=== PATIENT | female | born 1950 | race Caucasian/White ===

== ENCOUNTER 2017-09-16 10:34 | Outpatient (CLI) | payer OTHER ==
--- NOTE | 2017-09-16 13:23 | Ultrasound Report ---
PELVIC ULTRASOUND: 09/16/2017 CLINICAL INDICATION: Postmenopausal vaginal discharge. TECHNIQUE: Transabdominal pelvic ultrasound performed for global evaluation. FINDINGS: The uterus is retroverted, measuring 5.6 x 3.8 x 3.1 cm. The endometrial echo complex measures 4 mm. Small anterior intramural leiomyomas are noted, measuring up to 1.3 cm. The right ovary measures 2.5 x 1.5 x 1.0 cm, and demonstrates a 1 cm simple cyst. The left ovary measures 1.9 x 1.4 x 1.0 cm, and is unremarkable. No free fluid is present. IMPRESSION: NO EVIDENCE OF ENDOMETRIAL HYPERPLASIA. LEIOMYOMAS IN THE UTERUS. SMALL SIMPLE RIGHT OVARIAN CYST. TD: 09/16/2017 13:22
== END 2017-09-16 10:35 | disposition home or self-care (01) ==
LOC: DI 10:34
PROVIDERS: ATTEND Family Medicine
DX: D25.1 Intramural leiomyoma of uterus (principal); N83.291 Other ovarian cyst, right side
CPT/HCPCS: 76830; 76856

== ENCOUNTER 2019-03-02 08:00 | Outpatient (CLI) | payer OTHER ==
[2019-03-02 20:44] LABS: CANDIDA GROUP DNA NEGATIVE (NEGATIVE); CANDIDA KRUSEI DNA NEGATIVE (NEGATIVE); TRICHOMONAS VAGINALIS DNA NEGATIVE (NEGATIVE)
== END 2019-03-02 23:59 | disposition home or self-care (01) ==
LOC: LAB.R 08:00
PROVIDERS: ATTEND Family Medicine
DX: N89.8 Other specified noninflammatory disorders of vagina (principal)
CPT/HCPCS: 87661; 87801

== ENCOUNTER 2019-03-19 14:28 | Outpatient (CLI) | payer OTHER ==
--- NOTE | 2019-03-19 15:38 | Mammography Report ---
Reason: SCREENING MAMMO Procedure Date: 03/19/2019 Accession Number: [id number] / [id number] Procedure: MGN - Screening Mammo Dig Bilat CPT Code: FULL RESULT: EXAM: Screening Mammo Dig Bilat DATE: 03/19/2019 2:52 PM CLINICAL HISTORY: Routine screening TECHNIQUE: (B) - Bilateral CC and MLO views were obtained. COMPARISON: 07/01/2015, 03/04/2012, 03/02/2011, and 04/25/2009 PARENCHYMAL PATTERN: (VD) - The breasts demonstrate extremely dense parenchyma bilaterally, limiting the sensitivity of mammography. FINDINGS: No significant interval change. There are no suspicious masses, calcifications, or areas of distortion. IMPRESSION: Negative examination. BI-RADS category 1. RECOMMENDATION: (ANNUAL) - Recommend routine annual screening mammography. BI-RADS CATEGORY: (1) - Negative. STANDARD QUALIFYING STATEMENTS: 1. This examination was not reviewed with the aid of Computer-Aided Detection (CAD). 2. A negative or benign imaging report should not preclude biopsy if clinically suspicious findings are present. 3. Dense breasts may obscure an underlying neoplasm. 4. This examination was reviewed without the aid of 3D breast imaging (tomosynthesis).
== END 2019-03-19 14:29 | disposition home or self-care (01) ==
LOC: DI.N 14:28
DX: Z12.31 Encounter for screening mammogram for malignant neoplasm of breast (principal)
CPT/HCPCS: 77067

== ENCOUNTER 2019-04-13 08:00 | Outpatient (CLI) | payer OTHER ==
[2019-04-14 21:02] LABS: CANDIDA GROUP DNA NEGATIVE (NEGATIVE); CANDIDA KRUSEI DNA NEGATIVE (NEGATIVE); TRICHOMONAS VAGINALIS DNA NEGATIVE (NEGATIVE)
== END 2019-04-13 23:59 | disposition home or self-care (01) ==
LOC: LAB.R 08:00
PROVIDERS: ATTEND Obstetrics & Gynecology
DX: N89.8 Other specified noninflammatory disorders of vagina (principal)
CPT/HCPCS: 87661; 87801

== ENCOUNTER 2019-05-18 09:09 | Day surgery (SDC) | payer OTHER ==
[2019-05-18] MEDS ORDERED: LACTATED RINGERS 1,000 ML IV ONE (09:15)
[2019-05-18] MEDS ORDERED: fentaNYL 250 MCG/5 ML VIAL IVP ONE (09:40)
[2019-05-18] MEDS ORDERED: MIDAZOLAM 2 MG/2 ML VIAL IVP ONE (09:40)
[2019-05-18 11:18] VITALS: BP 121/80
== END 2019-05-18 09:10 | disposition home or self-care (01) ==
LOC: SDS 09:09
PROVIDERS: ATTEND Internal Medicine Gastroenterology
PROC: 0DBN8ZZ Excision of Sigmoid Colon, Via Natural or Artificial Opening Endoscopic (ICD-10-PCS; principal; 2019-05-18 10:30)
DX: Z12.11 Encounter for screening for malignant neoplasm of colon (principal); D12.5 Benign neoplasm of sigmoid colon; K57.30 Diverticulosis of large intestine without perforation or abscess without bleeding
CPT/HCPCS: 45380; J3010; J7120

== ENCOUNTER 2020-01-12 10:25 | Outpatient (CLI) | payer OTHER ==
[2020-01-12 11:07] LABS: ALBUMIN 4.5 g/dL (3.2-5.5); ALBUMIN/GLOBULIN RATIO 1.8 (1.0-2.2); ALKALINE PHOSPHATASE 44 IU/L (42-121); ALT ALANINE AMINOTRANSFERASE 59 IU/L (10-60); AST ASPARTATE AMINOTRANSFERASE 49 IU/L (10-42); BILIRUBIN,TOTAL 0.7 mg/dL (0.2-1.0); BUN - BLOOD UREA NITROGEN 14 mg/dL (6-20); CALCIUM 9.5 mg/dL (8.5-10.3); CARBON DIOXIDE - CO2 26 mmol/L (21-32); CHLORIDE 101 mmol/L (101-111); CHOL/HDL RATIO 2.9 (<4.4); CHOLESTEROL 273 mg/dL; CREATININE 0.7 mg/dL (0.4-1.0); GLUCOSE 108 mg/dL (70-100); HDL CHOLESTEROL 95 mg/dL; LDL CHOLESTEROL,CALCULATED 150 mg/dL; LDL/HDL RATIO 1.6 (<4.4); SODIUM 138 mmol/L (135-145); VLDL CHOLESTEROL 28 mg/dL
[2020-01-12 12:14] LABS: FREE T4 (FREE THYROXINE) 0.58 ng/dL (0.58-1.64)
== END 2020-01-12 10:26 | disposition home or self-care (01) ==
LOC: LAB 10:25
PROVIDERS: ATTEND Family Medicine
DX: Z11.59 Encounter for screening for other viral diseases (principal); U07.1 COVID-19; E78.5 Hyperlipidemia, unspecified; E03.9 Hypothyroidism, unspecified
CPT/HCPCS: 36415; 80053; 80061; 81599; 83721; 84439; 84443

== ENCOUNTER 2020-04-19 13:18 | Outpatient (CLI) | payer OTHER ==
--- NOTE | 2020-04-19 14:18 | SLEEP CARE CONSULTATION ---
Information from patient questionnaire entered by Krystin Celis. I have reviewed and concur with the information entered by Krystin Celis. This document represents the service I personally performed and the decisions made by me, Kellie Pierce ARNP. History of Present Illness Service Date and Time: 04/19/2020 1318 Reason for Visit: New patient Chief Complaint: reports: Insomnia, Unrefreshed sleep, Snoring, Excessive daytime sleepiness, Observed pauses in breathing, Fatigue, Frequent awakenings at night. denies: Other Date of Onset: years Usual bedtime: 1212-1487 Time it takes to fall asleep: varies Snores at night: Yes Observed to quit breathing while asleep: Yes Sleeps alone due to snoring: Yes ( in own room with CPAP) Number of times waking at night: 5-6 Reasons for waking at night: reports: Choking, Snoring, Gasping for air, Bathroom. denies: Other Toss, Turn, or Twitch while sleeping: Yes Recalls having dreams: Yes Usually gets out of bed at: depends; 0600 or 0700 when working Feels refreshed in the morning: Yes (sometimes) Morning headache: No Sleepy or fatigued during the day: Yes Ever fallen asleep while driving: No Takes day naps: Yes (1-2 a week, 1-2 hours on average) Dreams during day naps: No Prior sleep studies: No Additional HPI information: I had the pleasure of seeing PHILIP COLLINS today regarding the possibility of her having a sleep disorder. Her current complaints are snoring, unrefreshed sleep, excessive daytime sleepiness, frequent night awakening, insomnia and fatigue. tells her she snores and stops breathing. She wakes up choking. She does not always wake up feeling rested. Her has encouraged her to have a sleep study since he has sleep apnea and uses a CPAP with good results. - Parasomnia Symptoms Ever been unable to move upon waking from sleep: Yes Walks in sleep: No Talks in sleep: No Ever acted out dreams in sleep: No Ever felt weak in the knees when startled or emotional: Yes Bothered by creepy, crawly, restless sensations in legs: No Problems with memory or concentration: No Subjective Initial [place] Sleepiness Scale score: 4 (in 2019) Past Medical History Past Medical History: reports: Hypothyroidism. 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 Patient is and lives in [place]. Have you smoked in the past 12 months: No Years of smokin (5-10 years) Quit date: 1999 Alcohol use: Yes Alcohol amount and frequency: wine at night Caffeine use: Yes Caffeine amount and frequency: 2 cups coffee/A.M. Family History Family history of sleep disordered breathing: No Allergies and Home Medications Drug allergies reviewed: Yes (Sulfa) Home medication list reviewed: Yes Allergy and home medication list: levothyroxine venlafaxine acyclovir vit D3 Zolpidem as needed Review of Systems Cardiovascular: denies: high blood pressure, palpitations, chest pain, irregular heart rate or pulse, leg or foot swelling Respiratory: denies: shortness of breath Gastrointestinal: denies: heartburn, difficulty swallowing Neurological: denies: headaches, seizure, head trauma, speech dysfunction, gait or balance problems Psychiatric: denies: Attention Deficit Hyperactivity, anxiety, depression, mood disorder Ear/Nose/Throat: reports: injury to nose, tonsillectomy, wisdom teeth removed. denies: nasal congestion, sinus problems, nose bleeds, dry mouth/throat Endocrine: reports: thyroid disease Musculoskeletal: reports: joint pain, back pain. denies: muscle pain or cramping Immunologic: denies: allergies to food or environment Physical Exam Blood Pressure: 135/83 Cuff size: wrist Heart Rate: 63 O2 Saturation: 98 Height: 5 ft 5 in Weight: 147 lb Body Mass Index: 24.4 BMI Classification: Healthy weight Neck circumference: 14 (inches) HEENT: No craniofacial malformation Nostrils: patent to airflow Turbinates: swollen (left side) Septum: midline Mouth and throat: narrow oropharynx Soft palate: normal Hard palate: normal Uvula: normal Uvula visualization: 25% Mallampati Class III Tongue: enlarged in size with teeth tran on lateral edges Tonsils: absent bilaterally Chin and jaw: normal size and position Neck: normal w/o lymphadenopathy or thyromegaly Heart: regular rate and rhythm Lungs: clear bilaterally Impression and Plan 1. Suspected Obstructive Sleep Apnea-Hypopnea Syndrome, as suggested by a history of loud and irregular snoring, observed cessation of breath while asleep, gasping or choking in sleep, frequent awakening during the night, unrefreshed sleep, and excessive daytime sleepiness. I reviewed with patient that a narrow oropharynx and obesity are common predisposing factors for obstructive sleep apnea-hypopnea syndrome. I recommend proceeding to polysomnography to confirm the diagnosis and to assess severity. If the patient has significant sleep disordered breathing, a manual CPAP titration study will also be performed to find the optimal treatment pressure. I informed the patient of what the sleep studies involve and after some discussion, obtained agreement to proceed. The pathophysiology of obstructive sleep apnea-hypopnea syndrome was discussed with the patient and health risks of cardiovascular and cerebrovascular disease if not treated. AAS brochure for obstructive sleep apnea-hypopnea syndrome given and reviewed. Risks of drowsy driving discussed in detail and patient advised to avoid long distance driving and to sinker puller at the first sign of drowsiness. Patient agreed to plan. * Schedule polysomnography +- manual CPAP titration study. * Avoid long distance driving or driving when feeling sleepy. * Avoid alcohol, sedative and muscle relaxant around bedtime. * Attempt to lose weight. * Review instructions provided by trained office staff on how to prepare for the sleep study. * Return for follow-up after sleep study completed. Visit Type: In Office Time Spent with Patient (minutes): 36 Provider Statement: I spent 100% of the Face to Face Visit with the patient with greater than 50% spent counseling the patient and coordination of care.
[2020-04-19 14:19] VITALS: BP 135/83
== END 2020-04-19 13:19 | disposition home or self-care (01) ==
LOC: SC 13:18
PROVIDERS: ATTEND Nurse Practitioner Family
DX: G47.10 Hypersomnia, unspecified (principal); R06.81 Apnea, not elsewhere classified; G47.8 Other sleep disorders; R06.83 Snoring
CPT/HCPCS: 99203; 99212

== ENCOUNTER 2020-05-24 13:57 | Outpatient (CLI) | payer OTHER | END 2020-05-24 13:58 | disposition home or self-care (01) | LOC: SC 13:57 | PROVIDERS: ATTEND Nurse Practitioner Family | DX: G47.33 Obstructive sleep apnea (adult) (pediatric) (principal); R09.02 Hypoxemia | CPT/HCPCS: 95806 ==

== ENCOUNTER 2020-06-23 14:23 | Outpatient (CLI) | payer OTHER ==
--- NOTE | 2020-06-23 15:07 | SLEEP CARE CONSULTATION ---
Information from patient questionnaire entered by Kaci Fulton. I have reviewed and concur with the information entered by Kaci Fulton. This document represents the service I personally performed and the decisions made by , Kellie Pierce ARNP. History of Present Illness Service Date and Time: 06/23/20201422 Initial [place] Sleepiness Scale score: 4 (in 2020) Current [place] Sleepiness Scale score: 5 Additional HPI information: PHILIP COLLINS returns for follow up and results of the recently performed home sleep study. I explained the pathophysiology behind obstructive sleep apnea. We then spent quite a bit of time discussing different treatment options. For mild obstructive sleep apnea, surgery and oral appliance are alternatives to nasal CPAP therapy but in moderate or severe cases, nasal CPAP is the most effective and reliable treatment. Because apnea is primarily in supine position, then positional management therapy could be effective. Methods discussed such as positioning with pillows, using a T-shirt with tennis balls in the back, and shown commercial products that have a pillow format on back to prevent supine sleep. I reviewed the impact of weight changes on sleep apnea and strongly recommended losing weight. I explained how CPAP machine works with sample devices RespirINNFOCUS Dreamstation and [employer] [id number] and what to expect when using the machine. Using CPAP every night in order to get used to it was emphasized. Patient advised to put CPAP mask on before getting into bed so as not to fall asleep without CPAP. To assist acclimation to CPAP use, it could also be used for a short time during day while reading or watching TV. The patient was instructed to call the CPAP supplier to discuss any mechanical problem that may occur. If the mask given is uncomfortable or is difficult to keep on through the night even with adjustment, contact the CPAP supplier as many will replace with another mask style if notified before 30 days. If snoring or perceives is not getting enough air or too much air from the machine, notify this office. AASM patient education PAP tips reviewed and given to patient. Patient counseled not drink alcohol less than 4 hours before bedtime as it can increase snoring and apnea. Patient was cautioned about risks of drowsy driving until sleepiness symptoms resolve. Sleep Study - Results Type of Sleep Study: Home sleep study Prior sleep studies: No Polysomnography/Home Sleep Study results: Physician Impression: The quality of the study is good. The length of the study is adequate (> 240 minutes). Please also see the tabulated and graphic data. 1. Obstructive Sleep Apnea-Hypopnea (ICD-10 G47.33), moderate, with an AHI of 25.4/hr and trini SaO2 of 77%. During the study, the patient had 74 apneas (74 obstructive, 0 central, 0 mixed) and 45 hypopneas. The longest episode lasted 59.5 seconds. The respiratory events occurred more frequently during supine sleep (supine AHI was 60.9 and non-supine, 5.65). 2. Hypoxemia (ICD-10 R09.02), moderate, with the lowest oxygen saturation of 77 % and 39.6 minutes with SaO2 under 90%. Baseline oxygen saturation was normal (Average oxygen saturation was 92%). Allergies and Home Medications Drug allergies reviewed: Yes (sulfa) Home medication list reviewed: Yes (no changes) Review of Systems Review of systems same as previous: Yes (no changes) Physical Exam Heart Rate: 72 O2 Saturation: 98 Height: 5 ft 5 in Weight: 154 lb Body Mass Index: 25.6 BMI Classification: Overweight Impression and Plan 1. Obstructive Sleep Apnea-Hypopnea Syndrome, moderate, with lowest oxygen saturation of 77%. Obviously this is the cause of the patients symptoms of unrefreshed sleep, and excessive daytime sleepiness. Positive pressure therapy could benefit her overall health and reduce risks of cardiovascular and cerebrovascular events. I discussed therapy options and recommended she try the CPAP therapy. Patient would like to think about decision and talk to her before making a decision. She will call the office with her decision. She was given a list of DME suppliers to review. Because the apnea is more severe supine, I instructed to avoid sleeping supine using pillow positioning until able to start CPAP use. * Patient will let us know her decision on starting CPAP therapy * Avoid supine sleep until using CPAP. * The patient is again cautioned about driving until sleepiness completely resolves. * Return as needed or one month after CPAP obtained. I will assess response to therapy and compliance at that time. Visit Type: In Office Time Spent with Patient (minutes): 24 Provider Statement: I spent 100% of the Face to Face Visit with the patient with greater than 50% spent counseling the patient and coordination of care.
== END 2020-06-23 14:24 | disposition home or self-care (01) ==
LOC: SC 14:23
PROVIDERS: ATTEND Nurse Practitioner Family
DX: G47.33 Obstructive sleep apnea (adult) (pediatric) (principal); E66.3 Overweight; Z68.25 Body mass index [BMI] 25.0-25.9, adult
CPT/HCPCS: 99212; 99213

== ENCOUNTER 2020-08-09 13:53 | Outpatient (CLI) | payer OTHER ==
--- NOTE | 2020-08-09 14:32 | SLEEP CARE CONSULTATION ---
Information from patient questionnaire entered by Neftaly Stanley. I have reviewed and concur with the information entered by Neftaly Stanley. This document represents the service I personally performed and the decisions made by , Kellie Pierce ARNP. History of Present Illness Service Date and Time: 08/09/2020 1353 Previous diagnosis: Moderate, Obstructive Sleep Apnea-Hypopnea Syndrome AHI: 25.4 Reason for follow up: first compliance (07/06/20?) Equipment type: CPAP Equipment obtained from: [employer] (got initial supplies) Mask style: Nasal Mask brand: Resmed (Airfit) Backup mask available: No (has other masks, different sizes) Last cushion change: 1 month Prior sleep studies: No Year and Where: 2019 [facility] Type of Sleep Study: Home sleep study HPI additional information: PHILIP COLLINS was diagnosed to have moderate, AHI 25.4, obstructive sleep apnea- hypopnea syndrome and returned today for CPAP therapy first compliance follow- up. CPAP Compliance Data - Data Reviewed with Patient Average duration of nightly device use: 6 h 5 min Compliance rate %: 43 Current pressure setting (cmH2O): 4-15 (6.5 median, 9.3 average, 10.7 maximum) Average residual AHI: 2.6 Subjective Missed days of use due to: reports: other (power outage for 3 days) Patient concerns: reports: air blowing in eyes, mask leak noise, dry mouth, nose, throat (minor, not drinking water at night as used to; not using humidifier). denies: aerophagia, mask discomfort (becoming more comfortable), condensation in mask/hose, nasal congestion, epistaxis, other Observed to snore while using device: No Current pressure setting perceived as: comfortable On therapy, patient: reports: sleeping better, awakening more refreshed, being more awake and alert during the day, more rested overall. denies: drowsiness while driving Initial [place] Sleepiness Scale score: 4 (in 2019) Current [place] Sleepiness Scale score: 9 Allergies and Home Medications Drug allergies reviewed: Yes (Sulfa) Home medication list reviewed: Yes (no changes) Review of Systems Review of systems same as previous: Yes (no changes) Physical Exam Heart Rate: 68 O2 Saturation: 98 Height: 5 ft 5 in Weight: 152 lb Body Mass Index: 25.2 BMI Classification: Overweight Impression and Plan 1. Obstructive Sleep Apnea-Hypopnea Syndrome, moderate, with poor treatment compliance and good apnea control. On CPAP therapy, the patient has better sleep quality and is more rested overall. She is using a median pressure of 6.5 cmH2O, an average pressure of 9.3 cmH2O and a maximum pressure of 10.7 cm H2O. I will adjust her pressure to 6-10 cmH2O to reflect the pressure used since she is having good apnea control with these settings. She states that she is still getting used to the mask but feels this should improve in time. Philip has had some movement of her mask causing air leaks when sleeping on her side. I advised her to obtain a CPAP pillow to reduce this and this will reduce mask leaks and air getting in her eyes. She is not using her humidity chamber and has been having mild mouth dryness. I advised her that oral dryness can be reduced by adjusting humidity setting higher or heated hose lower or by adjusting both settings. Patient advised also that chronic oral dryness can affect dental health. She voiced understanding and agreement with plan of care. Patient's apnea severity and rationale for treatment to reduce apnea, improve sleep quality and reduce cardiovascular and cerebrovascular events was reviewed. * Change auto CPAP pressure to 6-10 cmH2O * Notify me if snoring with mask or feeling that the pressure is too much or too little * Attempt to lose weight * Call this office if any problems using CPAP * Return for follow up in 1-2 months, or sooner if concerns arise Counseling Topics: Spare mask, Weight loss health impact Visit Type: In Office Time Spent with Patient (minutes): 25 Provider Statement: I spent 100% of the Face to Face Visit with the patient with greater than 50% spent counseling the patient and coordination of care.
== END 2020-08-09 13:54 | disposition home or self-care (01) ==
LOC: SC 13:53
PROVIDERS: ATTEND Nurse Practitioner Family
DX: G47.33 Obstructive sleep apnea (adult) (pediatric) (principal); E66.3 Overweight; Z68.25 Body mass index [BMI] 25.0-25.9, adult
CPT/HCPCS: 99212; 99213

== ENCOUNTER 2020-09-13 13:50 | Outpatient (CLI) | payer OTHER ==
--- NOTE | 2020-09-13 14:19 | SLEEP CARE CONSULTATION ---
Information from patient questionnaire entered by Neftaly Stanley. I have reviewed and concur with the information entered by Neftaly Stanley. This document represents the service I personally performed and the decisions made by , Kellie Pierce ARNP. History of Present Illness Service Date and Time: 09/13/2020 1350 Previous diagnosis: Moderate, Obstructive Sleep Apnea-Hypopnea Syndrome AHI: 25.4 Reason for follow up: one month (followup - compliance/pressure change) Equipment type: CPAP Equipment obtained from: [employer] (got initial supplies) Mask style: Nasal (over the nose) Backup mask available: No (other masks, different sizes) Last cushion change: over 2 months Prior sleep studies: No and Where: 2019 [facility] Type of Sleep Study: Home sleep study HPI additional information: PHILIP COLLINS was diagnosed to have moderate, AHI 25.4, obstructive sleep apnea- hypopnea syndrome and returned today for CPAP therapy 1 month compliance and pressure change follow-up. CPAP Compliance Data - Data Reviewed with Patient Average duration of nightly device use: 8 h 13 min Compliance rate %: 97 Current pressure setting (cmH2O): 6-10 Average residual AHI: 1.9 Central apnea: 0.2 Obstructive apnea: 1.4 Subjective Patient concerns: reports: air blowing in eyes, mask leak noise, condensation in mask/hose. denies: aerophagia, mask discomfort, nasal congestion, dry mouth, nose, throat, epistaxis, other Observed to snore while using device: No Current pressure setting perceived as: comfortable On therapy, patient: reports: sleeping better, awakening more refreshed, being more awake and alert during the day, more rested overall. denies: drowsiness while driving Initial [place] Sleepiness Scale score: 4 (in 2019) Current [place] Sleepiness Scale score: 3 Allergies and Home Medications Drug allergies reviewed: Yes (Sulfa) Home medication list reviewed: Yes (no changes) Review of Systems Review of systems same as previous: Yes (no changes) Physical Exam Heart Rate: 59 O2 Saturation: 98 Height: 5 ft 5 in Weight: 152 lb Body Mass Index: 25.2 BMI Classification: Overweight Impression and Plan 1. Obstructive Sleep Apnea-Hypopnea Syndrome, moderate, with good treatment compliance and good apnea control. On CPAP therapy, the patient has better sleep quality and is more rested overall. She has had more frequent mask leaks which still improve with adjusting her mask. She still needs to contact DME to get more supplies since she is still using mask from her original supplies. Mask leaks can be reduced by washing mask daily and changing mask cushions more frequently to improve mask seal and comfort. Patient voiced understanding. Patient's apnea severity and rationale for treatment to reduce apnea, improve sleep quality and reduce cardiovascular and cerebrovascular events was reviewed. * Continue auto CPAP pressure at 6-10 cmH2O * Notify me if snoring with mask or feeling that the pressure is too much or too little * Attempt to lose weight * Call this office if any problems using CPAP * Return for follow up in 3 months, or sooner if concerns arise Counseling Topics: Spare mask, Weight loss health impact Visit Type: In Office Time Spent with Patient (minutes): 22 Provider Statement: I spent 100% of the Face to Face Visit with the patient with greater than 50% spent counseling the patient and coordination of care.
== END 2020-09-13 13:51 | disposition home or self-care (01) ==
LOC: SC 13:50
PROVIDERS: ATTEND Nurse Practitioner Family
DX: G47.33 Obstructive sleep apnea (adult) (pediatric) (principal); E66.3 Overweight; Z68.25 Body mass index [BMI] 25.0-25.9, adult
CPT/HCPCS: 99212; 99213

== ENCOUNTER 2020-12-13 13:55 | Outpatient (CLI) | payer OTHER ==
--- NOTE | 2020-12-13 14:20 | SLEEP CARE CONSULTATION ---
Information from patient questionnaire entered by Kaci Fulton. I have reviewed and concur with the information entered by Kaci Fulton. This document represents the service I personally performed and the decisions made by , Kellie Pierce ARNP. History of Present Illness Service Date and Time: 12/13/2020 1355 Previous diagnosis: Moderate, Obstructive Sleep Apnea-Hypopnea Syndrome AHI: 25.4 (in 2019) Reason for follow up: three month Equipment type: CPAP Equipment obtained from: [employer] (getting supplies as needed) Mask style: Nasal (over the nose) Backup mask available: No (will keep old mask when replaced) Last cushion change: 1 month Prior sleep studies: Yes Year and Where: 2019 - [facility] Type of Sleep Study: Home sleep study HPI additional information: PHILIP COLLINS was diagnosed to have moderate, AHI 25.4, obstructive sleep apnea- hypopnea syndrome and returned today with partner for CPAP therapy three month follow-up. CPAP Compliance Data - Data Reviewed with Patient Average duration of nightly device use: 7 hr 18 min Compliance rate %: 92 (90 days) Current pressure setting (cmH2O): 6-10 Humidity settin Average residual AHI: 2.1 Subjective Patient concerns: denies: aerophagia, mask discomfort, air blowing in eyes, mask leak noise, condensation in mask/hose, nasal congestion, dry mouth, nose, throat, epistaxis, other Observed to snore while using device: No Current pressure setting perceived as: comfortable On therapy, patient: reports: sleeping better, awakening more refreshed, being more awake and alert during the day, more rested overall. denies: drowsiness while driving Initial [place] Sleepiness Scale score: 4 (in 2019) Current [place] Sleepiness Scale score: 6 Allergies and Home Medications Home medication list reviewed: Yes (no new meds) Review of Systems Review of systems same as previous: Yes (no changes) Physical Exam Heart Rate: 66 O2 Saturation: 99 Height: 5 ft 5 in Weight: 156 lb Body Mass Index: 25.9 BMI Classification: Overweight Impression and Plan 1. Obstructive Sleep Apnea-Hypopnea Syndrome, moderate, with good treatment compliance and good apnea control. On CPAP therapy, the patient has better sleep quality and is more rested overall. She has significant improvement of her sleep apnea and is satisfied with her treatment. She has no complaints of aerophagia, epistaxis, oral dryness, skin irritation or snoring with the device. She is becoming very comfortable with CPAP use. She has continued to nap in the afternoons but she states she just enjoys it and I advised her to use her CPAP during naps. She voiced understanding and agreement. Patient's apnea severity and rationale for treatment to reduce apnea, improve sleep quality and reduce cardiovascular and cerebrovascular events was reviewed. * Continue auto CPAP pressure at 6-10 cmH2O * Notify me if snoring with mask or feeling that the pressure is too much or too little * Attempt to lose weight * Call this office if any problems using CPAP * Return for follow up in six month, or sooner if concerns arise Counseling Topics: Spare mask, Weight loss health impact Visit Type: In Office Time Spent with Patient (minutes): 15 Provider Statement: I spent 100% of the Face to Face Visit with the patient with greater than 50% spent counseling the patient and coordination of care.
== END 2020-12-13 13:56 | disposition home or self-care (01) ==
LOC: SC 13:55
PROVIDERS: ATTEND Nurse Practitioner Family
DX: G47.33 Obstructive sleep apnea (adult) (pediatric) (principal); E66.3 Overweight; Z68.25 Body mass index [BMI] 25.0-25.9, adult
CPT/HCPCS: 99212

== ENCOUNTER 2021-02-09 13:10 | Outpatient (CLI) | payer OTHER ==
--- NOTE | 2021-02-10 10:50 | Mammography Report ---
BILATERAL DIGITAL SCREENING MAMMOGRAM 3D/2D: 02/09/2021 CLINICAL: Routine screening. Comparison is made to exams dated: 03/19/2019 mammogram, 07/01/2015 mammogram, 03/04/2012 mammogram, mammogram, and 03/02/2011 mammogram - [facility]. The tissue of both breast s is heterogeneously dense. This may lower the sensitivity of mammography. No significant masses, calcifications, or other findings are seen in either breast. There has been no significant interval change. IMPRESSION: NEGATIVE There is no mammographic evidence of malignancy. A 1 year screening mammogram is recommended. This exam was interpreted at Station ID: [id number]. NOTE: For mammograms, a report in lay terms will be sent to the patient. Approximately 15% of breast malignancies will not be visualized mammographically. In the management of a palpable breast mass, a negative mammogram must not discourage biopsy of a clinically suspicious lesion. Electronically Signed By: Gunner [email or web address]/iraida:02/09/2021 14:10:07 ACR BI-RADS Category 1: Negative 3341F PARENCHYMAL PATTERN: (D) - The breast(s) demonstrate(s) heterogeneously dense fibroglandular parsonyay ma. BI-RADS CATEGORY: (1) - 1 RECOMMENDATION: (ANNUAL) - Recommend routine annual screening mammography. [id number] 1 year screening LATERALITY: (B)
== END 2021-02-09 13:11 | disposition home or self-care (01) ==
LOC: DI.N 13:10
PROVIDERS: ATTEND Obstetrics & Gynecology
DX: Z12.31 Encounter for screening mammogram for malignant neoplasm of breast (principal)

== ENCOUNTER 2021-06-02 13:29 | Outpatient (CLI) | payer OTHER ==
[2021-06-02 18:05] LABS: BASOPHILS # (AUTO) 0.1 10^3/uL (0.0-0.1); BASOPHILS % (AUTO) 0.7 %; EOSINOPHILS # (AUTO) 0.4 10^3/uL (0.0-0.7); EOSINOPHILS % (AUTO) 5.3 %; HCT - HEMATOCRIT 42.2 % (37.0-47.0); HGB - HEMOGLOBIN 13.7 g/dL (12.0-16.0); LYMPHOCYTES # (AUTO) 2.1 10^3/uL (1.5-3.5); LYMPHOCYTES % (AUTO) 31.1 %; MEAN CORPUSCULAR HEMOGLOBIN 33.5 pg (27.0-31.0); MEAN CORPUSCULAR HGB CONC 32.5 g/dL (32.0-36.0); MEAN CORPUSCULAR VOLUME 103.2 fL (81.0-99.0); MEAN PLATELET VOLUME 10.9 fL (7.9-10.8); MONOCYTES # (AUTO) 0.6 10^3/uL (0.0-1.0); MONOCYTES % (AUTO) 8.8 %; NEUTROPHILS # (AUTO) 3.6 10^3/uL (1.5-6.6); NEUTROPHILS % (AUTO) 53.8 %; PLT - PLATELET COUNT 221 10^3/uL (130-450); RED BLOOD COUNT 4.09 10^6/uL (4.20-5.40); RED CELL DISTRIBUTION WIDTH 12.8 % (12.0-15.0); WHITE BLOOD COUNT 6.8 x10^3/uL (4.8-10.8)
[2021-06-02 18:33] LABS: ALBUMIN 4.5 g/dL (3.2-5.5); ALBUMIN/GLOBULIN RATIO 1.8 (1.0-2.2); ALKALINE PHOSPHATASE 44 IU/L (42-121); ALT ALANINE AMINOTRANSFERASE 42 IU/L (10-60); AST ASPARTATE AMINOTRANSFERASE 41 IU/L (10-42); BILIRUBIN,TOTAL 1.4 mg/dL (0.2-1.0); BUN - BLOOD UREA NITROGEN 11 mg/dL (6-20); CALCIUM 9.5 mg/dL (8.5-10.3); CARBON DIOXIDE - CO2 24 mmol/L (21-32); CHLORIDE 99 mmol/L (101-111); CHOL/HDL RATIO 2.6 (<4.4); CHOLESTEROL 266 mg/dL; CREATININE 0.8 mg/dL (0.4-1.0); GFR - MDRD 71 (>89); GLUCOSE 94 mg/dL (70-100); HDL CHOLESTEROL 101 mg/dL; LDL CHOLESTEROL,CALCULATED 150 mg/dL; LDL/HDL RATIO 1.5 (<4.4); POTASSIUM 4.5 mmol/L (3.5-5.0); SODIUM 133 mmol/L (135-145); TRIGLYCERIDES 75 mg/dL; VLDL CHOLESTEROL 15 mg/dL
[2021-06-02 18:39] LABS: THYROID STIMULATING HORMONE 0.83 uIU/mL (0.34-5.60)
== END 2021-06-02 23:59 | disposition home or self-care (01) ==
LOC: LAB.WCP 13:29
PROVIDERS: ATTEND Family Medicine
DX: E78.5 Hyperlipidemia, unspecified (principal); E03.9 Hypothyroidism, unspecified; Z79.899 Other long term (current) drug therapy
CPT/HCPCS: 36415; 80053; 80061; 83721; 84443; 85025

== ENCOUNTER 2021-11-19 12:48 | Outpatient (CLI) | payer BC ==
--- NOTE | 2021-11-19 15:51 | XRAY Report ---
PROCEDURE: Ankle 3 View RT INDICATIONS: SPRAIN OF OTHER LIGAMENT OF RIGHT ANKLE TECHNIQUE: 3 views of the ankle were acquired. COMPARISON: None. FINDINGS: Bones: There is an avulsion fracture in the tip of the lateral malleolus mild displacement. Ankle mo rtise is normally aligned. No suspicious bony lesions. There is calcaneal spurring. Soft tissues: Small tibiotalar joint effusion may be present. Achilles tendon appears normal. Soft tissue swelling. IMPRESSION: Avulsion fracture of the distal lateral malleolus. Reviewed by: Ben William MD on 11/19/2021 2:49 PM ALEC Approved by: Ben William MD on 11/19/2021 2:49 PM ALEC Station ID: [id number]
== END 2021-11-19 12:49 | disposition home or self-care (01) ==
LOC: DI 12:48
PROVIDERS: ATTEND Family Medicine
DX: S82.61XA Displaced fracture of lateral malleolus of right fibula, initial encounter for closed fracture (principal)

== ENCOUNTER 2021-11-28 13:00 | Outpatient (CLI) | payer BC ==
--- NOTE | 2021-11-28 18:22 | XRAY Report ---
PROCEDURE: Ankle 3 View RT INDICATIONS: ANKLE FX TECHNIQUE: 3 views of the ankle were acquired. COMPARISON: X-ray ankle 11/19/2021 FINDINGS: Bones: Small linear ossification is noted along the distal fibula, unchanged compared to prior exam. Ankle mortise is normally aligned. No suspicious bony lesions. Soft tissues: Persistent, although decreased appearance of lateral malleoli or fracture. Achilles ten don appears normal. IMPRESSION: Decreased ankle edema with unchanged appearance of distal fibular avulsion fracture. Reviewed by: Pretty Ortega MD on 11/28/2021 6:20 PM PDT Approved by: Pretty Ortega MD on 11/28/2021 6:20 PM PDT Station ID: [id number]
== END 2021-11-28 23:59 | disposition home or self-care (01) ==
LOC: DI.WOS 13:00
PROVIDERS: ATTEND Orthopaedic Surgery
DX: S82.891A Other fracture of right lower leg, initial encounter for closed fracture (principal)

== ENCOUNTER 2022-01-10 13:34 | Outpatient (CLI) | payer BC ==
[2022-01-10 14:14] VITALS: BP 167/93
--- NOTE | 2022-01-10 14:14 | SLEEP CARE CONSULTATION ---
Information from patient questionnaire entered by Deuce Doherty MA. I have reviewed and concur with the information entered by Deuce Doherty MA. This document represents the service I personally performed and the decisions made by , Kellie Pierce ARNP. History of Present Illness Service Date and Time: 01/10/2022 1334 Previous diagnosis: Moderate, Obstructive Sleep Apnea-Hypopnea Syndrome AHI: 25.4 (in 2019) Reason for follow up: annual (LAST SEEN 12/2020, SAHARA, PRITCHARD 07/13/2020, ) Equipment type: CPAP Equipment obtained from: [facility] (getting supplies as needed) Mask style: Nasal (over the nose) Backup mask available: Yes (other mask) Last cushion change: 2 months Prior sleep studies: Yes Year and Where: 2019 - [facility] Type of Sleep Study: Home sleep study HPI additional information: PHILIP COLLINS was diagnosed to have moderate, AHI 25.4, obstructive sleep apnea- hypopnea syndrome and returned today for CPAP therapy annual follow-up. Sleep Study - Results Type of Sleep Study: Home sleep study Prior sleep studies: Yes Year and Where: 2019 - [facility] CPAP Compliance Data - Data Reviewed with Patient Average duration of nightly device use: 8 HOURS 24 MINUTES Compliance rate %: 99 (07/13/21-01/08/2022; 180 days, 180/180 day usage) Current pressure setting (cmH2O): 6-10 Average residual AHI: 2.1 Central apnea: .2 Obstructive apnea: 1.6 Hypopnea: .2 Average large leak: .6 Subjective Patient concerns: reports: air blowing in eyes, mask leak noise, condensation in mask/hose (over a year ago), dry mouth, nose, throat (not using humidifier due to condensation). denies: aerophagia, mask discomfort, nasal congestion, epistaxis, other Observed to snore while using device: No Current pressure setting perceived as: comfortable On therapy, patient: reports: sleeping better, awakening more refreshed, being more awake and alert during the day, more rested overall. denies: drowsiness while driving Initial [place] Sleepiness Scale score: 4 (in 2019) Current [place] Sleepiness Scale score: 6 Allergies and Home Medications Known drug allergies: Yes (SULFA) Home medication list reviewed: Yes (no changes) Allergy and home medication list: Allergies Sulfa (Sulfonamide Antibiotics) Allergy (Mild, Verified 05/15/19 13:57) Rash Review of Systems Review of systems same as previous: Yes (no changes) Physical Exam Vital signs obtained and entered by: LYNN PRESCOTT Blood Pressure: 167/93 (RESP 18, PULSE 62, LEFT) Cuff size: wrist Heart Rate: 63 O2 Saturation: 98 (PAPER MASK) Height: 5 ft 5 in Weight: 111 lb (CLOTHES) Body Mass Index: 18.4 BMI Classification: Underweight Impression and Plan 1. Obstructive Sleep Apnea-Hypopnea Syndrome, moderate, with excellent treatment compliance and good apnea control. On CPAP therapy, the patient has better sleep quality and is more rested overall. Patient states her insurance has changed so she was told by [facility] that she will need to go somewhere else for her supplies. I will have my construction project coordinator inform of DME options. A DWO prescription will then be made. Patient advised to contact this office if further supply problems. Patient denies problems with oral dryness, nasal congestion, epistaxis, skin irritation or aerophagia. Patient's apnea severity and rationale for treatment to reduce apnea, improve sleep quality and reduce cardiovascular and cerebrovascular events was reviewed. * Continue auto CPAP pressure at 6-10 cmH2O * Transfer DME * Notify me if snoring with mask or feeling that the pressure is too much or too little * Call this office if any problems using CPAP * Return for follow up in 1 year, or sooner if concerns arise Counseling Topics: Spare mask Visit Type: In Office Time Spent with Patient (minutes): 20 Provider Statement: I spent 100% of the Face to Face Visit with the patient with greater than 50% spent counseling the patient and coordination of care.
== END 2022-01-10 13:35 | disposition home or self-care (01) ==
LOC: SC 13:34
PROVIDERS: ATTEND Nurse Practitioner Family
DX: G47.33 Obstructive sleep apnea (adult) (pediatric) (principal)
CPT/HCPCS: 99212; 99213

== ENCOUNTER 2022-01-23 08:00 | Outpatient (CLI) | payer BC ==
--- NOTE | 2022-01-23 15:00 | XRAY Report ---
PROCEDURE: Ankle 3 View RT INDICATIONS: ANKLE FX TECHNIQUE: 3 views of the ankle were acquired. COMPARISON: 3 views of the ankle dated 11/28/2020 FINDINGS: Bones: Avulsion fracture is redemonstrated at the distal fibula. There is likely early callus now vis ualized. No new suspicious bony lesions. Soft tissues: No tibiotalar joint effusion. Achilles tendon appears normal. IMPRESSION: Early callus at the distal fibular fracture. Reviewed by: Rochelle Dumont MD on 01/23/2022 2:58 PM PDT Approved by: Rochelle Dumont MD on 01/23/2022 2:58 PM PDT Station ID: [id number]
== END 2022-01-23 23:59 | disposition home or self-care (01) ==
LOC: DI.WOS 08:00
PROVIDERS: ATTEND Orthopaedic Surgery
DX: S82.61XD Displaced fracture of lateral malleolus of right fibula, subsequent encounter for closed fracture with routine healing (principal)

== ENCOUNTER 2022-06-21 11:26 | Outpatient (CLI) | payer BC ==
--- NOTE | 2022-06-21 13:33 | XRAY Report ---
PROCEDURE: Hips 2V BILAT INDICATIONS: HIP PAIN BILATERAL TECHNIQUE: 2 views of the both hips were acquired. COMPARISON: None FINDINGS: Bones: No fractures or dislocations. No suspicious bony lesions. The visualized pelvic ring appear s intact. There is moderate osteoarthritic degenerative change involving the patient's right hip. Soft tissues: No suspicious soft tissue calcifications or masses. IMPRESSION: 1. No evidence for acute osseous abnormality involving the hips or pelvis. 2. Moderate osteoarthritic type degenerative changes left hip. Reviewed by: Pietro Kohler MD on 06/21/2022 1:31 PM PST Approved by: Pietro Kohler MD on 06/21/2022 1:31 PM PST Station ID: [id number]
== END 2022-06-21 11:27 | disposition home or self-care (01) ==
LOC: DI 11:26
PROVIDERS: ATTEND Physician Assistant
DX: M16.0 Bilateral primary osteoarthritis of hip (principal)

== ENCOUNTER 2023-03-21 12:49 | Outpatient (CLI) | payer BC ==
--- NOTE | 2023-03-21 13:12 | Sleep Patient Instructions ---
Sleep Center Visit Summary - Patient Visit Information Reason for Visit: ANNUAL FOLLOWUP FOR PAP THERAPY - Patient Instructions Additional Instructions: You will continue with CPAP therapy with pressure set at 6-10 cmH2O. A supply prescription will be updated with your DME. We encourage you to continue to try to lose weight. Please follow up with the sleep care office in 1 year. - Clinic Information Contact: [facility] [address] [place] [address] [email or web address] T: [phone]
--- NOTE | 2023-03-21 13:16 | SLEEP CARE CONSULTATION ---
Information from patient questionnaire entered by Elder Herron. I have reviewed and concur with the information entered by Elder Herron. This document represents the service I personally performed and the decisions made by me, Kellie Pierce ARNP. History of Present Illness Service Date and Time: 03/21/2023 1249 Previous diagnosis: Moderate, Obstructive Sleep Apnea-Hypopnea Syndrome AHI: 25.4 (in 2019) Reason for follow up: annual (LAST SEEN 12/2021) Equipment type: CPAP (RESMED AirSense 10, 06/2020) Equipment obtained from: Other ([facility]; getting supplies as needed) Mask style: Nasal (over the nose) Backup mask available: No (will keep ol mask when replaced) Last cushion change: over six months Prior sleep studies: Yes Year and Where: 2019 - [facility] Type of Sleep Study: Home sleep study HPI additional information: PHILIP COLLINS was diagnosed to have moderate, AHI 25.4, obstructive sleep apnea- hypopnea syndrome and returned today for CPAP therapy annual follow-up. Sleep Study - Results Type of Sleep Study: Home sleep study Prior sleep studies: Yes Year and Where: 2019 - [facility] CPAP Compliance Data - Data Reviewed with Patient Average duration of nightly device use: 8 HRS 40 MINS Compliance rate %: 99 (09/20/22-03/18/23; 180/180 days used) Current pressure setting (cmH2O): 6-10 Average residual AHI: 1.9 Central apnea: 0.1 Obstructive apnea: 1.5 Average large leak: 0.5 L/min Subjective Patient concerns: reports: air blowing in eyes, condensation in mask/hose (not using humidifier), dry mouth, nose, throat (oral venting; not using humidifier). denies: aerophagia, mask discomfort, mask leak noise, nasal congestion, epistaxis Observed to snore while using device: No Current pressure setting perceived as: comfortable On therapy, patient: reports: sleeping better, awakening more refreshed, being more awake and alert during the day, more rested overall. denies: drowsiness while driving Initial [place] Sleepiness Scale score: 4 (in 2019) Current [place] Sleepiness Scale score: 5 (03/21/23) Allergies and Home Medications Known drug allergies: Yes (Sulfa) Drug allergies reviewed: Yes Home medication list reviewed: Yes (no changes) Allergy and home medication list: Allergies Sulfa (Sulfonamide Antibiotics) Allergy (Mild, Verified 03/20/23 16:42) Rash Review of Systems Review of systems same as previous: No (cataract surgery and eyelids lifted) Physical Exam Vital signs obtained and entered by: ELDER Reina MA Blood Pressure: 122/70 (LEFT ARM) Cuff size: regular Heart Rate: 71 O2 Saturation: 99 Height: 5 ft 5 in Weight: 163 lb 6.4 oz Body Mass Index: 27.1 BMI Classification: Overweight Impression and Plan 1. Obstructive Sleep Apnea-Hypopnea Syndrome, moderate, with good treatment compliance and good apnea control. On CPAP therapy, the patient has better sleep quality and is more rested overall. Patient states she thinks she needs a different size mask cushion. It appears to be too big. She stated that she has not changed the mask cushion and over a year. I explained to her that this should be changed at least every month and that changing out probably improve the mask seal. She is also getting some dry mouth but is not using her humidifier. I encouraged her to use that humidifier and get a heated hose to control any condensation. She voiced understanding. Patient's apnea severity and rationale for treatment to reduce apnea, improve sleep quality and reduce cardiovascular and cerebrovascular events was reviewed. 2. Overweight, unspecified. Currently patients BMI is 27.1. Obesity increases the risk of apnea, CPAP pressure requirements and overall health risks especially cardiovascular and diabetes. Thus patient is advised to lose weight. * Continue auto CPAP pressure at 6-10 cmH2O * Update supplies * Notify me if snoring with mask or feeling that the pressure is too much or too little * Attempt to lose weight * Call this office if any problems using CPAP * Return for follow up in 1 year, or sooner if concerns arise Counseling Topics: Spare mask, Weight loss health impact Prescriptions: Device supplies Visit Type: In Office Time Spent with Patient (minutes): 20 Provider Statement: I spent 100% of the Face to Face Visit with the patient with greater than 50% spent counseling the patient and coordination of care.
[2023-03-21 13:45] VITALS: BP 122/70; O2SAT 99
== END 2023-03-21 12:50 | disposition home or self-care (01) ==
LOC: SC 12:49
PROVIDERS: ATTEND Nurse Practitioner Family
DX: G47.33 Obstructive sleep apnea (adult) (pediatric) (principal); E66.3 Overweight; Z68.27 Body mass index [BMI] 27.0-27.9, adult
CPT/HCPCS: 99212; 99213

== ENCOUNTER 2023-07-10 14:52 | Outpatient (CLI) | payer BC ==
--- NOTE | 2023-07-11 09:05 | XRAY Report ---
PROCEDURE: Lumbar Spine 2-3V INDICATIONS: BACK PAIN TECHNIQUE: 2 views of the lumbar spine were acquired. COMPARISON: None. FINDINGS: Bones: 5 [id number] vertebrae are present. Mild levocurvature of the lumbar spine. Mild anterol isthesis of L3 on L4. Mild anterior wedge compression deformities of the L1 and L2 anterior bodies. N o diffusely decreased osseous mineralization. There are multilevel degenerative changes of the lumbar spine with facet arthropathy and disc height loss with degenerative endplate changes and marginal sp urring. No suspicious bony lesions. Soft tissues: Overlying bowel gas pattern is normal. No suspicious soft tissue calcifications. IMPRESSION: 1.Multilevel degenerative changes of the lumbar spine. 2.Mild anterior wedge compression deformities of the L1 and L2 vertebral bodies of uncertain chronici ty. No retropulsion is seen. If concern for acute fracture, recommend correlation with point tenderne ss or MRI for further evaluation. Reviewed by: Amador Ward MD on 07/11/2023 9:04 AM PST Approved by: Amador Ward MD on 07/11/2023 9:04 AM PST Station ID: [id number]
--- NOTE | 2023-07-11 09:09 | XRAY Report ---
PROCEDURE: Thoracic Spine 2 View INDICATIONS: SAIGE PAIN TECHNIQUE: 2 views of the thoracic spine were acquired. COMPARISON: None. FINDINGS: Bones: Mild anterior wedge compression deformity of T12. No suspicious bony lesions. 12 pairs of rib s are noted, and appear intact where visualized. Mild dextrocurvature of the thoracic spine. Diffuse ly decreased osseous mineralization. Multilevel degenerative changes with intervertebral disc height loss, degenerative endplate changes and spurring. Soft tissues: No paravertebral stripe thickening. IMPRESSION: 1.Mild anterior wedge compression deformity of T12 of unknown chronicity. Clinical concern for acute fracture, recommend correlation with point tenderness or MRI for further evaluation. 2.Mild multilevel degenerative changes of the thoracic spine. Reviewed by: Amador Ward MD on 07/11/2023 9:08 AM PST Approved by: Amador Ward MD on 07/11/2023 9:08 AM PST Station ID: [id number]
== END 2023-07-10 14:53 | disposition home or self-care (01) ==
LOC: DI 14:52
PROVIDERS: ATTEND Physician Assistant
DX: M47.816 Spondylosis without myelopathy or radiculopathy, lumbar region (principal); M48.56XA Collapsed vertebra, not elsewhere classified, lumbar region, initial encounter for fracture; M48.54XA Collapsed vertebra, not elsewhere classified, thoracic region, initial encounter for fracture; M47.814 Spondylosis without myelopathy or radiculopathy, thoracic region

== ENCOUNTER 2023-08-07 13:39 | Outpatient (CLI) | payer BC ==
--- NOTE | 2023-08-08 09:18 | Mammography Report ---
BILATERAL DIGITAL SCREENING MAMMOGRAM 3D/2D: 08/07/2023 CLINICAL: Routine screening. Comparison is made to exams dated: 02/09/2021 mammogram, 03/19/2019 mammogram, and 07/01/2015 mammogram - [facility]. Both breasts are heterogeneously dense, which may obscure small masses (category c / 51-75% glandular tissue). No significant masses, calcifications, or other findings are seen in either breast. There has been no significant interval change. IMPRESSION: NEGATIVE There is no mammographic evidence of malignancy. A 1 year screening mammogram is recommended. Based on the Tyrer Cuzick model (a risk assessment model) the patient's lifetime risk is 9.8% and her 10 year risk is 6.2%. According to the ACR, ACS, and NCCN guidelines, an annual breast MRI exam abbie g with mammogram is recommended if the patients lifetime risk is 20% or greater. This exam was interpreted at Station ID: [id number]. NOTE: For mammograms, a report in lay terms will be sent to the patient. Approximately 15% of breast malignancies will not be visualized mammographically. In the management of a palpable breast mass, a negative mammogram must not discourage biopsy of a clinically suspicious lesion. Electronically Signed By: Domenic fuchs/iraida:08/07/2023 21:30:24 ACR BI-RADS Category 1: Negative 3341F PARENCHYMAL PATTERN: (D) - The breast(s) demonstrate(s) heterogeneously dense fibroglandular rachel llamas. BI-RADS CATEGORY: (1) - 1 Mammogram [id number] 1 year screening LATERALITY: (B)
== END 2023-08-07 13:40 | disposition home or self-care (01) ==
LOC: DI.N 13:39
DX: Z12.31 Encounter for screening mammogram for malignant neoplasm of breast (principal); R92.333 Mammographic heterogeneous density, bilateral breasts